=== PATIENT | male | born 1965 | race Caucasian/White ===

== ENCOUNTER 2016-08-03 08:29 | Day surgery (SDC) | payer OTHER ==
[2016-07-26 14:27] LABS: HEMOGLOBIN 16.8 g/dL (13.6-17.8)
[2016-07-26 14:28] LABS: HEMATOCRIT 49.3 % (40.0-51.0)
--- NOTE | ~2016-08-03 | OP ---
Record Of Operation [facility] [address] [place]. [address] NAME: BANDAR SUE : 63 STATUS : REG [facility] [place] PAT#: [id number] AGE: 50 ADM/REG DATE : 08/03/16 MR#: [id number] REPORT SERV DATE: 08/03/16 DICTATED BY: EDWIN RAMIRES DATE: 08/03/16 REPORT STATUS : Draft TRANSCRIBED BY: MODL DATE: 08/03/16 DATE OF PROCEDURE: 08/03/2016 PREOPERATIVE DIAGNOSIS: Esophageal cancer. POSTOPERATIVE DIAGNOSIS: Esophageal cancer. PROCEDURE PERFORMED: Placement of a right internal jugular Port-A-Cath. RESIDENT: Kyle Patton MD. ANESTHETIC: MAC. ESTIMATED BLOOD LOSS: 10 mL. IV FLUIDS: 400. SPECIMENS: None. DRAINS: None. COMPLICATIONS: None. WOUND CLASSIFICATION: Clean. PREOPERATIVE HISTORY AND INDICATIONS: This is a 50-year-old male with esophageal cancer. He was offered Port-A-Cath for Cytotoxic chemotherapy. Risks, benefits, and alternatives were described to the patient in detail and he is amenable to the procedure. DESCRIPTION OF PROCEDURE: After informed consent was obtained, the patient was taken to the operating suite and placed in supine position. After sufficient induction of MAC anesthesia, the patient's chest and neck were prepped and draped in normal sterile fashion. Time-out was called, identifying the patient as the Bandar Sue with the procedure being performed as internal jugular Port-A-Cath placement. An ultrasound was then used to identify the internal jugular vein and the right carotid artery. Vein was easily viewed and compressible. Local anesthetic was then infiltrated along the skin over the vein and over the anterior chest wall. Introducer needle was then introduced into the right internal jugular vein under ultrasound guidance. Wire was passed through the introducer needle and the introducer needle was removed leaving the wire in place. Scalpel was then used to create an incision over the anterior chest wall. Combination of blunt dissection and electrocautery were used to dissect down to the anterior pectoralis fascia and a pocket was formed over the anterior pectoralis fascia working up through the Port-A-Cath reservoir. Two 3-0 Vicryl stay sutures were then placed in the pocket to secure the Port-A-Cath in place. An 11 blade was then used to make an incision over the wire. A dilator and Peel- Away catheter were advanced over the wire into the internal jugular vein. The wire and dilator were removed leaving the Peel-Away catheter in place. The Port-A-Cath catheter was Record Of [facility] [address] [place]. [address] NAME: BANDAR SUE : 63 STATUS : REG [facility] [place] PAT#: [id number] AGE: 50 ADM/REG DATE : 08/03/16 MR#: [id number] REPORT SERV DATE: 08/03/16 DICTATED BY: EDWIN RAMIRES DATE: 08/03/16 REPORT STATUS : Draft TRANSCRIBED BY: MODL DATE: 08/03/16 threaded through the Peel-Away catheter for used to perform placement. At the cavoatrial junction, the Peel-Away catheter was then removed leaving the Port-A-Cath catheter in place. A tunneler was then used to tunnel the catheter from the insertion site in the neck to the anterior chest wall incision site. The catheter was trimmed to the appropriate length and connected to the Port-A-Cath reservoir. [place] was then introduced into the incision site and the stay sutures were tied down. Fluoroscopy was then used to ensure proper placement at the cavoatrial junction and no kinking of the catheter. Good placement was noted. There was no kinking noted. The Port-A-Cath was then accessed with a Zarate needle and was noted to usually . The skin was then reapproximated using 3-0 Vicryl in a subcuticular interrupted manner at the chest wall incision site. This was then dressed with Steri-Strips, Telfa, and Tegaderm. The neck incision site was dressed with Steri-Strips, Telfa, and Tegaderm. The patient tolerated the procedure well. He was awakened in the operating suite, transferred to the PACU in a stable and satisfactory condition. DICTATED BY: MD ALEJA Carvalho/MARIFER Edwin Ramires M.D. / [id number] CC: Yusra Angulo M.D.
[~2016-08-03 08:29] MED LIST: BEN25 PO; CELEXA20 PO; DEX2 PO; DEX4 PO; KLONO5 PO; NORCO1 TA1 PO; PREDNISONE; PRILO PO; TEMOVATE CREAM30 GM TOP
== END 2016-08-03 16:13 | disposition home or self-care (01) ==
LOC: SDC 08:29
PROVIDERS: Specialist
PROC: B513ZZA Fluoroscopy of Right Jugular Veins, Guidance (ICD-10-PCS; 2016-08-03)
PROC: 05HM33Z Insertion of Infusion Device into Right Internal Jugular Vein, Percutaneous Approach (ICD-10-PCS; principal; 2016-08-03 09:15)
DX: C15.9 Malignant neoplasm of esophagus, unspecified (principal); Z88.0 Allergy status to penicillin; Z87.891 Personal history of nicotine dependence; M10.9 Gout, unspecified; Z90.49 Acquired absence of other specified parts of digestive tract; F41.9 Anxiety disorder, unspecified; F32.9 Major depressive disorder, single episode, unspecified
CPT/HCPCS: 71010; 76000; 77001; 85014; 85018; 93005; C1788; J0690; J2250; J2405; J3010